=== PATIENT | female | born 1940 | race Caucasian/White ===

== ENCOUNTER 2025-06-13 10:37 | Outpatient (CLI) | payer MEDICARE ==
[~2025-06-13 10:37] MED LIST: Iopamidol 370 76% 100 ML VIAL ONE
== END 2025-06-13 10:38 | disposition home or self-care (01) ==
LOC: CSHCT 10:37
PROVIDERS: ATTEND Family Medicine
DX: R11.0 Nausea (principal); R63.4 Abnormal weight loss
CPT/HCPCS: 74177; Q9967